=== PATIENT | male | born 1960 | race Caucasian/White ===

== ENCOUNTER 2018-08-16 12:03 | Emergency (ER) | payer OTHER ==
[~2018-08-16] VITALS: Ht 182.9 cm; Wt 81.6 kg
[2018-08-16] MEDS ORDERED: LORAZEPAM INJ 2 MG/ML VIAL IV ONE (12:30)
[2018-08-16] MEDS ORDERED: ONDANSETRON HCL/PF 4 MG/2 ML VIAL IVP ONE (12:30)
[2018-08-16] MEDS ORDERED: IV NS 0.9% 1,000 ML BAG IV ONE (12:30)
[2018-08-16] MEDS ORDERED: methylPREDNISolone SOD SUCC 40 MG/ML VIAL IV ONE (12:30)
--- NOTE | 2018-08-16 12:30 | NUR ---
BIB [facility] FROM WORK,DIZZINESS AND VOMITING X 30 MINUTES, AGGRAVATED BY STANDING. NOTED ACTIVE NAUSEA AND RETCHING.VSS. SEEN BY MD FOR EVAL. IV ACCESS STARTED. WIRE SPIRAL BINDER JENNIFER BLOOD. MEDICATED ORDERED. SAFETY AND COMFORT MEASURES PROVIDED. WILL MONITOR.
[2018-08-16 12:34] LABS: BASOPHILS # (AUTO) 0.1 /CMM (0.0-0.2); BASOPHILS % (AUTO) 1.2 % (0.0-2.0); HEMATOCRIT 49 % (39-51); HEMOGLOBIN 16.4 g/dL (13.5-17.5); LYMPHOCYTES # (AUTO) 1.7 /CMM (0.8-4.8); LYMPHOCYTES % (AUTO) 26.9 % (20.0-44.0); MEAN CORPUSCULAR HGB CONC 34 g/dl (31.0-36.0); MEAN CORPUSCULAR VOLUME 95 fL (80-96); MONOCYTES # (AUTO) 0.5 /CMM (0.1-1.30); MONOCYTES % (AUTO) 8.3 % (2.0-12.0); NEUTROPHILS # (AUTO) 3.6 /CMM (1.8-8.9); NEUTROPHILS % (AUTO) 58.6 % (43.0-81.0); PLATELET COUNT (AUTO) 254 /CMM (150-450); RDW COEFFICIENT OF VARIATION 11.6 (11.5-15.0); RED BLOOD CELL COUNT(AUTO) 5.11 MIL/uL (4.5-6.0); WHITE BLOOD COUNT (AUTO) 6.2 K/uL (4.3-11.0)
[2018-08-16 12:42] LABS: CALCIUM, SERUM 8.9 mg/dL (8.5-10.1)
[2018-08-16 12:48] LABS: ALBUMIN 4.2 g/dL (3.4-5.0); BILIRUBIN,DIRECT 0.1 mg/dL (0.0-0.2); BILIRUBIN,TOTAL 0.6 mg/dL (0.2-1.0); TOTAL PROTEIN, SERUM 6.8 g/dL (6.4-8.2)
--- NOTE | 2018-08-16 12:50 | NUR ---
PT'S AT BS AND UPDATED WITH POC.
[2018-08-16] MEDS ORDERED: methylPREDNISolone SOD SUCC 40 MG/ML VIAL ONE (12:51)
[2018-08-16] MEDS ORDERED: ONDANSETRON HCL/PF 4 MG/2 ML VIAL ONE ×2 (12:51→17:11)
[2018-08-16] MEDS ORDERED: LORAZEPAM INJ 2 MG/ML VIAL ONE (12:53)
[2018-08-16 15:00] VITALS: BP 124/77
[2018-08-16] MEDS ORDERED: ONDANSETRON 4 MG TAB.RAPDIS SL ONE (17:00)
[2018-08-16] MEDS ORDERED: ONDANSETRON 4 MG TAB.RAPDIS ONE (17:12)
--- NOTE | 2018-08-16 17:35 | NUR ---
IV removed. Catheter intact and site benign. Pressure and 4x4 applied to site. No bleeding noted.
--- NOTE | 2018-08-16 17:41 | NUR ---
Patient does not wish to proceed with medical care recommended by . Patient given information related to possible complications, up to and including , which could occur as a result of leaving the hospital at this time. Patient verbalizes understanding of risks involved due to leaving against medical advice. Patient has signed AMA form.
== END 2018-08-16 19:03 | disposition left against medical advice (07) ==
LOC: ER 12:08
DX: H81.09 Meniere's disease, unspecified ear (principal)
CPT/HCPCS: 36415; 80048; 80076; 85025; 96361; 96374; 96375; 99284; A4606; J2060; J2405 ×2; J2920; J7030; Z7610; Q0162